=== PATIENT | male | born 1950 | race Caucasian/White ===

== ENCOUNTER 2023-12-07 10:39 | Emergency (ER) | payer MEDICARE, OTHER, SELFPAY ==
[2023-12-07 11:05] VITALS: BP 138/87
[2023-12-07] MEDS: TYLENOL 650 MG PO (12:35)
--- NOTE | 2023-12-07 12:35 | ED.GENMED ---
History of Present Illness
<Pari Herrera PA-C - Last Filed: 12/07/23 20:35>
General
Chief Complaint: Throat Problem
Source: patient
Exam Limitations: none
Time Seen by Provider: 12/07/23 12:04
Nursing documentation reviewed up to this point in time: agreed with
Travel History
Have you had any contact with someone who has COVID-19?: No
Do you have any symptoms of coronavirus? Fever > 100 degrees, chills, cough, shortness of breath, sore throat, loss of taste or smell, muscle aches, or headache?: Yes
Symptoms:: sore throat
History of Present Illness
History of Present Illness:
Patient is 73-year-old male with history hypertension, hyperlipidemia presenting to the emergency department for evaluation of sore throat worsening over the past few days. Patient states he started with a sore throat about 3 days ago which has
been progressively worsening. He endorses a very severe pain made worse with swallowing. Patient denies any associated fever, chills, nasal congestion, or cough. Patient denies any neck pain, chest pain, or shortness of breath. Although patient
does endorse pain when swallowing�he has been able to eat and drink appropriately. Patient has tried taking Tylenol over the past few days without much improvement.
Patient denies any recent travel. Patient denies any known recent sick contacts. No known history of HSV.
Patient was a former smoker.
Past History
<Pari Herrera PA-C - Last Filed: 12/07/23 20:35>
Past History
ED Past Medical History: CAD, HTN and Hypercholesterolemia
ED Past Surgical History: Cardiac (CABG)
Social History
Tobacco: Non-smoker
Alcohol: None
Drug: None
Personal:
Living: with family
Review of Systems
<Pari Herrera PA-C - Last Filed: 12/07/23 20:35>
Review of Systems
Allergies reviewed?: Yes
All Other Systems: ROS reviewed and negative except as documented in HPI and ROS
Phy Exam
<Pari Herrera PA-C - Last Filed: 12/07/23 20:35>
Physical Exam
Physical Exam:
Vitals: Patient's vital signs are stable. Afebrile
General: Patient is well appearing, no acute distress. Nontoxic-appearing
Skin: Warm and dry, no rashes or lesions on palms or soles
Eyes: Sclera nonicteric. EOMs intact. No nystagmus.
Ears: Right ear canal is widely patent with normal tympanic membrane and normal landmarks. No mastoid tenderness. Left ear canal is widely patent with normal tympanic membrane with normal limits. No mastoid tenderness
Sinuses: No tenderness of maxillary sinuses, no tenderness to frontal sinus.
Throat: Erythema noted to posterior pharynx with multiple white vesicles scattered in posterior pharynx. No tonsillar edema or exudates. No CARTRIDGE LOADER. Uvula midline, no asymmetry. Protecting airway. Adequate dentition. No trismus or drooling.
Neck: Normal ROM, no cervical spine tenderness, no meningismus. Some anterior lymphadenopathy noted. No redness, edema of neck. Trachea midline.
Cardiac: Regular rate and rhythm, no murmurs.
Pulm: Normal respiratory effort, no wheezes, rales, rhonchi heard on exam.
Abdomen: Abdomen soft. No abdominal tenderness.
Extremities: No evidence of cyanosis or edema. Good distal pulses.
Neuro: AAOx3. CN II-XII intact. No focal neurologic deficits.
Psychiatric: Normal affect.
Course
<Pari Herrera PA-C - Last Filed: 12/07/23 20:35>
Orders/Labs/Results
Orders:
Orders
12/07/23 11:42
Rapid Strep Group A Urgent
YANETH Source: Throat/Pharynx
Specimen Description:
Date Specimen was Collected: 12/07/23
Time Specimen was Collected: 11:40
Throat Culture, Comprehensive Urgent
YANETH Source: Throat/Pharynx
Specimen Description:
Date Specimen was Collected: 12/07/23
Time Specimen was Collected: 11:40
12/07/23 12:23
COVID-19 Antigen Urgent
Source: Nasal Swab
12/07/23 12:28
Acetaminophen [Tylenol] 650 mg PO NOW STA
12/07/23 12:33
Acetaminophen [Tylenol] 650 mg .ROUTE .STK-MED ONE
12/07/23 12:47
Dexamethasone [Decadron] 10 mg PO NOW STA
12/07/23 12:54
Dexamethasone Pf [Decadron] 10 mg .ROUTE .STK-MED ONE
12/07/23 12:56
Dexamethasone Pf [Decadron] 10 mg PO NOW STA
Vital Signs
Initial and Last Documented VS:
Initial Vital Signs
Temp Pulse Resp BP Pulse Ox
97.5 F 67 16 138/87 98
12/07/23 11:05 12/07/23 11:05 12/07/23 11:05 12/07/23 11:05 12/07/23 11:05
Last Documented Vital Signs
Temp Pulse Resp BP Pulse Ox
97.5 F 67 16 138/87 98
12/07/23 11:05 12/07/23 11:05 12/07/23 11:05 12/07/23 11:05 12/07/23 11:05
<Arun Jensen, - Last Filed: 12/07/23 13:24>
Orders/Labs/Results
Orders:
Orders
12/07/23 11:42
Rapid Strep Group A Urgent
YANETH Source: Throat/Pharynx
Specimen Description:
Date Specimen was Collected: 12/07/23
Time Specimen was Collected: 11:40
Throat Culture, Comprehensive Urgent
YANETH Source: Throat/Pharynx
Specimen Description:
Date Specimen was Collected: 12/07/23
Time Specimen was Collected: 11:40
12/07/23 12:23
COVID-19 Antigen Urgent
Source: Nasal Swab
12/07/23 12:28
Acetaminophen [Tylenol] 650 mg PO NOW STA
12/07/23 12:33
Acetaminophen [Tylenol] 650 mg .ROUTE .STK-MED ONE
12/07/23 12:47
Dexamethasone [Decadron] 10 mg PO NOW STA
12/07/23 12:54
Dexamethasone Pf [Decadron] 10 mg .ROUTE .STK-MED ONE
12/07/23 12:56
Dexamethasone Pf [Decadron] 10 mg PO NOW STA
Vital Signs
Initial and Last Documented VS:
Initial Vital Signs
Temp Pulse Resp BP Pulse Ox
97.5 F 67 16 138/87 98
12/07/23 11:05 12/07/23 11:05 12/07/23 11:05 12/07/23 11:05 12/07/23 11:05
Last Documented Vital Signs
Temp Pulse Resp BP Pulse Ox
97.5 F 67 16 138/87 98
12/07/23 11:05 12/07/23 11:05 12/07/23 11:05 12/07/23 11:05 12/07/23 11:05
<Pari Herrera PA-C - Last Filed: 12/07/23 20:35>
MDM/Problems Addressed
Differential Diagnosis Includes:
Not limited to: Viral illness including COVID, coxsackie, HSV; bacterial pharyngitis, mononucleosis, peritonsillar abscess, Mathieu angina
MDM/Problems Addressed:
73-year-old male presents with acute onset sore throat worsening over the past few days. No other associated symptoms. No known fevers at home. No known recent sick contacts. Vital stable, afebrile. Patient is uncomfortable appearing, although
nontoxic. On exam�there is significant erythema of throat and multiple white vesicles noted to his posterior pharynx. No tonsillar edema or exudates. There are no meningeal signs. Neurologic exam excellent. No other rashes noted on patient's
body, including palms and soles. Rapid strep test negative. Throat culture will be sent�although I do not suspect bacterial pharyngitis. COVID test negative. Exam is consistent with likely viral acute herpangina�likely coxsackievirus. Given
significant discomfort and inflammation of throat�will give 10 mg p.o. Decadron in emergency department.
Patient's vital signs are stable. He has no meningeal signs. He is otherwise stable for discharge with supportive care, primary care follow-up. Will send prescription for Magic mouthwash for comfort persist. Discussed return precautions with
patient at length and importance of staying well-hydrated. Patient comfortable with plan. All questions answered
Chronic conditions affecting care:
Hypertension
Acute Exacerbation and/or Progression of Chronic Illness:
Acute hypertensive
<Pari Herrera PA-C - Last Filed: 12/07/23 20:35>
*Pulse Oximetry
Patient hypoxic: no
*EKG
Interpreted by ED Provider?: NA
*Network Intelligence Analyst Interpretation
Rate: Network Intelligence Analyst- N/A
*Critical Care Note
Total Time (30-74mins, 75-104mins- exclusive of procedures): Not Applicable
ED Attending Note
<Pari Herrera PA-C - Last Filed: 12/07/23 20:35>
-
Portions of this chart may have been created with voice recognition software.� Occasional wrong word or��sound alike� substitutions may have occurred due to the inherent limitations of voice recognition software.
<Arun Jensen DO - Last Filed: 12/07/23 13:24>
ED Attending Note
Patient seen and examined by attending physician: Yes
I performed the substantive portion of visit, reviewed & personally made and approve the management plan that is documented in note by myself or DUSTY.: Yes
Discharge Plan
Departure
Patient Disposition: Home (Routine Discharge)
Date of Disposition: 12/07/23
Time of Disposition: 13:28
Patient with high blood pressure during this ER visit?: Yes
Condition: Good
Covid-19: Negative COVID-19
Discharge Problem:
Acute herpangina
Instructions: Mouth Sores (DC), BLOOD PRESSURE
Prescriptions:
No Action
aspirin 81 MG tablet,delayed release (DR/EC)
81 mg PO DAILY
atorvastatin 80 MG tablet
80 mg PO DAILY
sertraline 100 MG tablet
100 mg PO DAILY
alprazolam 0.25 MG tablet
0.25 mg PO TIDPRN PRN (Reason: ANXIETY)
furosemide 40 MG tablet
40 mg PO DAILY Qty: 90 3RF
potassium chloride [Klor-Con M20] 20 MEQ tablet,ER particles/crystals
20 meq PO DAILY Qty: 90 3RF
carvedilol 12.5 MG tablet
12.5 mg PO BID Qty: 0 0RF
Rx Instructions:
Remember to take TWICE A DAY!!
Referrals:
UNKNOWN - PT DOES,NOT KNOW [Family Provider] -
Activity Restrictions/Additional Instructions:
RETURN TO THE EMERGENCY DEPARTMENT WITH ANY HIGH FEVERS, CHILLS, CHEST PAIN, SHORTNESS OF BREATH, INABILITY TO SWALLOW, WORSENING IN CURRENT SYMPTOMS OR ANY OTHER CONCERNS
-A prescription for a mouthwash has been sent to her pharmacy. You can use this as needed for discomfort. You should continue to take Tylenol and/or Motrin for discomfort. It is more to stay well-hydrated. Recommend soft foods until symptoms
start to improve. Avoid salty and spicy foods.
-You should follow with your primary care provider within a week to ensure that symptoms are improving/for further evaluation
Interventions
Interventions:
*Risk Screen - Suicide Last Done: 12/07/23 13:33
*General Assessment Last Done: 12/07/23 13:33
*Neglect/Abuse Screening Last Done: 12/07/23 13:33
ED- Fall Risk Assessment Last Done: 12/07/23 13:33
*ED COVID-19 Vaccine History Last Done: 12/07/23 11:05
*Nursing Disposition Last Done: 12/07/23 13:33
ED-EENT Assessment Last Done: 12/07/23 11:44
ED- Pulmonary Assessment Last Done: 12/07/23 13:33
Discharge Date and Time
Discharge Date/Time: 12/07/23 13:34
Print Language: VIETNAMESE
[2023-12-07 12:41] LABS: COVID-19 Antigen Negative (Negative)
[2023-12-07] MEDS: DECADRON 10 MG PO (12:56)
== END 2023-12-07 13:34 | disposition home or self-care (01) ==
LOC: EMR 10:39
PROVIDERS: Physician Assistant; EMERGENCY PHYSICIAN Emergency Medicine
DX: B08.5 Enteroviral vesicular pharyngitis (principal); Z11.52 Encounter for screening for COVID-19; I10 Essential (primary) hypertension; I25.10 Atherosclerotic heart disease of native coronary artery without angina pectoris; E78.00 Pure hypercholesterolemia, unspecified; Z85.820 Personal history of malignant melanoma of skin; Z87.891 Personal history of nicotine dependence; Z95.1 Presence of aortocoronary bypass graft; Z79.82 Long term (current) use of aspirin
CPT/HCPCS: 99283; 87070; 87811; 87880

== ENCOUNTER 2023-12-14 12:55 | Emergency (ER) | payer MEDICARE, OTHER, SELFPAY ==
[2023-12-14 12:57] VITALS: BP 122/104
[2023-12-14 13:17] LABS: % Basophils 0.3 % (0-2); % Eosinophils 2.9 % (0-6); % Immature Granulocytes 0.7 % (0-0.5); % Lymphocytes 14.9 % (20.5-51.1); % Monocytes 9.2 % (1.7-9.3); Absolute Eosinophils 0.2 10^3/uL (0-0.7); Absolute Immature Granulocytes 0.1 10^3/uL (0-0.05); Absolute Lymphocytes 1.1 10^3/uL (1.2-3.4); Absolute Monocytes 0.7 10^3/uL (0.1-0.6); Absolute Neutrophils 5.2 10^3/uL (1.4-6.5); Hematocrit 43.3 % (39.0-52.0); Hemoglobin 14.4 g/dL (13.0-18.0); Mean Corp Hgb Conc. 33.3 g/dL (33.0-37.0); Mean Corpuscular Hgb 29.1 pg (27.0-31.0); Mean Corpuscular Volume 87.7 fL (80.0-94.0); Mean Platelet Volume 9.7 fL (7.4-10.4); Nucleated Red Blood Cells % 0 % (-); Platelet Count 150 10^3/uL (130-400); Red Blood Cell Count 4.94 10^6/uL (4.70-6.10); Red Cell Dist. Width 12.3 % (11.5-14.5); White Blood Cell Count 7.2 10^3/uL (4.8-10.8)
[2023-12-14 13:41] LABS: ALT (SGPT) 35 U/L (0-50); AST (SGOT) 28 U/L (17-59); Albumin 4.4 g/dl (3.5-5.0); Alkaline Phosphatase 93 U/L (38-126); Blood Urea Nitrogen 22 mg/dl (9-20); Calcium 9.1 mg/dl (8.4-10.2); Carbon Dioxide 32 mmol/L (22-30); Chloride 101 mmol/L (98-107); Glucose 92 mg/dl (70-99); Potassium 4.4 mmol/L (3.5-5.1); Sodium 141 mmol/L (135-145); Total Bilirubin 0.8 mg/dl (0.2-1.3); Total Protein 6.7 g/dl (6.3-8.2); eGFR > 60.00
[2023-12-14 13:57] VITALS: BMI 32.1
--- NOTE | 2023-12-14 14:07 | ED.GENMED ---
History of Present Illness
<Pari Herrera PA-C - Last Filed: 12/14/23 20:11>
General
Chief Complaint: Seizure
Source: patient
Exam Limitations: none
Time Seen by Provider: 12/14/23 13:46
Nursing documentation reviewed up to this point in time: agreed with
History of Present Illness
History of Present Illness:
Patient is a 73-year-old male with history CAD, hypertension, hyperlipidemia presenting for evaluation of uncontrollable twitching of head and upper body. Patient's states symptoms that he had 1 episode of this yesterday morning and then it
did not occur for the rest of the day. When he woke up this morning he had a repetitive twitching of his head and upper body that lasts a few seconds and then resolves. Today this has been occurring every 30 seconds.
Patient denies any associated pain, headache, fever, chills, numbness/tingling. Patient states that he has been walking without difficulty this morning and the twitching does not seem to affect his lower body. Patient's states patient has
been acting himself and does not seem confused or altered.
Of note�patient was recently in the emergency department about 1 week ago was treated for acute gingivostomatitis, presumed to be viral and discharged. Throat symptoms have somewhat improved
Past History
<Pari Herrera PA-C - Last Filed: 12/14/23 20:11>
Past History
ED Past Medical History: CAD, HTN and Hypercholesterolemia
ED Past Surgical History: Cardiac (CABG)
Social History
Tobacco: Non-smoker
Alcohol: None
Drug: None
Personal:
Living: with family
Phy Exam
<Pari Herrera PA-C - Last Filed: 12/14/23 20:11>
Physical Exam
Physical Exam:
Vitals: Hypertensive on arrival, otherwise vital signs stable. Afebrile
General: Patient is well appearing, intermittent upper extremity tremulous activity. Nontoxic-appearing
Skin: Warm and dry, no rashes or lesions
Head: Normocephalic, atraumatic
Eyes: Sclera nonicteric. EOMs intact. No nystagmus. Pupils equal round and reactive to light bilaterally
Throat: Posterior pharynx erythematous without any evidence of vesicles, tonsillar edema or exudates
Neck: Normal ROM, no cervical spine tenderness, no meningismus. Negative Kernig and Brezinski
Cardiac: Regular rate and rhythm, no murmurs.
Pulm: Normal respiratory effort, no wheezes, rales, rhonchi heard on exam.
Abdomen: Abdomen soft. No abdominal tenderness.
Extremities: No evidence of cyanosis or edema. Intermittent tremulous activity of upper extremities as described below
Neuro: AAOx3. CN II-XII intact. No focal neurologic deficits. Normal finger-nose. Strength 5 of 5 in upper and lower extremities. Brief upper extremity and head myoclonic activity lasting a few seconds at a time
Psychiatric: Normal affect.
Course
<Pari Herrera PA-C - Last Filed: 12/14/23 20:11>
Orders/Labs/Results
Orders:
Orders
12/14/23 13:09
CMP [Comprehensive Metabolic Panel] Urgent
Complete Blood Count/With Diff Urgent
12/14/23 13:59
CT Head W/o Iv Contrast Urgent
Comment:
Reason For Exam: new onset tremor
12/14/23 14:07
Diazepam [Valium] 2 mg PO NOW STA
12/14/23 14:08
Diazepam [Valium] 5 mg PO NOW STA
12/14/23 14:34
Acetaminophen [Tylenol] 650 mg .ROUTE .STK-MED ONE
12/14/23 14:36
Acetaminophen [Tylenol] 650 mg PO NOW STA
Abnormal Lab Results
12/14/23
13:09
Abs Immat Gran (auto) 0.1 H 10^3/uL
(0-0.05)
Absolute Lymphs (auto) 1.1 L 10^3/uL
(1.2-3.4)
Absolute Monos (auto) 0.7 H 10^3/uL
(0.1-0.6)
Immature Gran % 0.7 H %
(0-0.5)
Lymphocytes % 14.9 L %
(20.5-51.1)
Carbon Dioxide 32 H mmol/L
(22-30)
BUN 22 H mg/dl
(9-20)
12/14/23 13:09
12/14/23 13:09
Vital Signs
Initial and Last Documented VS:
Initial Vital Signs
Temp Pulse Resp BP Pulse Ox
98.4 F 62 18 122/104 95
12/14/23 12:57 12/14/23 12:57 12/14/23 12:57 12/14/23 12:57 12/14/23 12:57
Last Documented Vital Signs
Temp Pulse Resp BP Pulse Ox
98.4 F 52 16 145/87 95
12/14/23 12:57 12/14/23 15:45 12/14/23 15:45 12/14/23 15:00 12/14/23 15:45
<Francesco Mooney MD - Last Filed: 12/14/23 15:51>
Orders/Labs/Results
Orders:
Orders
12/14/23 13:09
CMP [Comprehensive Metabolic Panel] Urgent
Complete Blood Count/With Diff Urgent
12/14/23 13:59
CT Head W/o Iv Contrast Urgent
Comment:
Reason For Exam: new onset tremor
12/14/23 14:07
Diazepam [Valium] 2 mg PO NOW STA
12/14/23 14:08
Diazepam [Valium] 5 mg PO NOW STA
12/14/23 14:34
Acetaminophen [Tylenol] 650 mg .ROUTE .STK-MED ONE
12/14/23 14:36
Acetaminophen [Tylenol] 650 mg PO NOW STA
Abnormal Lab Results
12/14/23
13:09
Abs Immat Gran (auto) 0.1 H 10^3/uL
(0-0.05)
Absolute Lymphs (auto) 1.1 L 10^3/uL
(1.2-3.4)
Absolute Monos (auto) 0.7 H 10^3/uL
(0.1-0.6)
Immature Gran % 0.7 H %
(0-0.5)
Lymphocytes % 14.9 L %
(20.5-51.1)
Carbon Dioxide 32 H mmol/L
(22-30)
BUN 22 H mg/dl
(9-20)
12/14/23 13:09
12/14/23 13:09
Vital Signs
Initial and Last Documented VS:
Initial Vital Signs
Temp Pulse Resp BP Pulse Ox
98.4 F 62 18 122/104 95
12/14/23 12:57 12/14/23 12:57 12/14/23 12:57 12/14/23 12:57 12/14/23 12:57
Last Documented Vital Signs
Temp Pulse Resp BP Pulse Ox
98.4 F 52 16 145/87 95
12/14/23 12:57 12/14/23 15:45 12/14/23 15:45 12/14/23 15:00 12/14/23 15:45
<Pari Herrera PA-C - Last Filed: 12/14/23 20:11>
MDM/Problems Addressed
Differential Diagnosis Includes:
Not limited to: Muscular spasm/myoclonus, seizure, viral infection, HSV encephalitis
MDM/Problems Addressed:
Patient is 73-year-old male presenting with uncontrolled tremor starting yesterday. Patient appears to have uncontrolled myoclonus episodes of the upper extremities and face occurring a few times per minute. These only last few seconds. Patient
has no other neurologic findings. Patient has a steady gait. Patient has full strength in bilateral upper and lower extremities. Patient is afebrile with a negative Kernig sign and no meningeal signs. No rash. Patient's gingivostomatitis seems
improved from last week. Patient denies any headache, visual changes, weakness. Symptoms not consistent with seizure activity. Initial labs without any clinically significant abnormalities. Will check head CT although suspected to be normal.
Will try 5 p.o. Valium and reassess. Patient's bradycardia is noted and with comparison to prior vital signs appears baseline for patient
Did speak with neurology who feel symptoms are most consistent with myoclonic activity. CT without any acute abnormalities.
I have reassessed patient multiple times patient does still have these frequent upper extremity twitches even after administration. Otherwise he remains alert and oriented. No involvement of lower extremities. Patient is not confused with no
meningeal signs or evidence to suspect an encephalitis. Did offer patient admission for further observation but both himself and his would rather observe patient at home. Did discuss return precautions at length. Suspect this may be related
to likely viral syndrome and should resolve with time. Will have patient increase dose of Xanax over the next 2 days to see if it improves symptoms. Patient and patient's will monitor symptoms closely return with any worsening.
Chronic conditions affecting care:
N/A
Acute Exacerbation and/or Progression of Chronic Illness:
N/A
<Pari Herrera PA-C - Last Filed: 12/14/23 20:11>
*Radiology
Radiology exam reviewed: preliminary read by ED provider and radiology read reviewed
*Pulse Oximetry
Patient hypoxic: no
*EKG
Interpreted by ED Provider?: NA
*Crew Person Interpretation
Rate: bradycardiac
Interpretation: abnormal
Heart Rate: 56
Rhythm: sinus
*Critical Care Note
Total Time (30-74mins, 75-104mins- exclusive of procedures): Not Applicable
Data Reviewed
Review of Other/Old Records Reveals: Records (Emergency department visit 12/07/23)
Source: previous hospital records
Further Testing Considered But Not Given:
conisdered LP to rule out encephalitis; no neurological findings other than mycolonus. Patient afebrile, with no headache or meningeal signs
ED Attending Note
<Pari Herrera PA-C - Last Filed: 12/14/23 20:11>
-
Portions of this chart may have been created with voice recognition software.� Occasional wrong word or��sound alike� substitutions may have occurred due to the inherent limitations of voice recognition software.
<Francesco Mooney MD - Last Filed: 12/14/23 15:51>
ED Attending Note
Patient seen and examined by attending physician: Yes
I performed the substantive portion of visit, reviewed & personally made and approve the management plan that is documented in note by myself or DUSTY.: Yes
ED Attending Note:
73-year-old male uncontrolled tremor started yesterday. Much worse today. Frequent nature. Each 1 will last a second or so has been occurring possibly 2-3 or 4 times per minute. Mostly upper extremities and head no headache photophobia fever or
other complaints. Still has some sore throat that he had last week when he was here. However much improved.
On exam patient is nontoxic in no distress. He intermittently has these episodes of very brief tremor mostly upper extremity i.e. myoclonus like activity. During these episodes that last a second he is fully awake alert. He has a supple neck. He
has no photophobia. Gait is normal. He does have mild pharyngeal erythema but he showed a picture of the previous exudate and spots on his throat that are now much improved.
Patient does have a history of an episode like this after surgery 10 years ago. He also feels he may have mild Tourette's although never diagnosed. He is clinically with a supple neck and no clinical findings to support meningeal encephalitis.
Discussed with neurology and videos were sent to neurology for further input.
1550.... I have reevaluated this patient multiple times and he has remained very stable and nontoxic. He still has these occasional myoclonic light twitches. Symmetrical bilateral upper extremity chest and head. No lower extremity involvement.
Interestingly his said he had none while sleeping overnight last night. He has no other findings that would support meningeal encephalitis. He has no neck pain no Kernig's or Brudzinski's finding. No photophobia. There is no confusion. He
is fully awake and alert. Is no fever. No white count. This was all discussed with the patient and . Again he was offered admission for observation to see if this developed into anything further however they would prefer outpatient
monitoring if there is no clear benefit to admission at this time. Neurology again had sent videos of these episodes.
Discharge Plan
Departure
Patient Disposition: Home (Routine Discharge)
Date of Disposition: 12/14/23
Time of Disposition: 15:41
Patient with high blood pressure during this ER visit?: Yes
Condition: Good
Covid-19: Not Applicable
Discharge Problem:
Myoclonus
Instructions: Myoclonus
Prescriptions:
No Action
aspirin 81 MG tablet,delayed release (DR/EC)
81 mg PO DAILY
atorvastatin 80 MG tablet
80 mg PO DAILY
sertraline 100 MG tablet
100 mg PO DAILY
alprazolam 0.25 MG tablet
0.25 mg PO TIDPRN PRN (Reason: ANXIETY)
furosemide 40 MG tablet
40 mg PO DAILY Qty: 90 3RF
potassium chloride [Klor-Con M20] 20 MEQ tablet,ER particles/crystals
20 meq PO DAILY Qty: 90 3RF
carvedilol 12.5 MG tablet
12.5 mg PO BID Qty: 0 0RF
Rx Instructions:
Remember to take TWICE A DAY!!
Referrals:
Topkis,Francesco L., [Family Provider] - Follow up in 5-7 days
Activity Restrictions/Additional Instructions:
RETURN TO THE EMERGENCY DEPARTMENT WITH FEVERS, HEADACHE, NECK PAIN, ALTERED MENTAL STATUS, VISUAL CHANGES, NEW RASH, WORSENING IN CURRENT SYMPTOMS, OR ANY OTHER CONCERNS
-As discussed - you can increase your xanax over the next few to 3 times a day. It is important to stay well-hydrated.
-You should observe your symptoms closely at home and return to the emergency department for any acute worsening or new symptom onset.
Interventions
Interventions:
*Risk Screen - Suicide Last Done: 12/14/23 13:57
*General Assessment Last Done: 12/14/23 13:57
*Neglect/Abuse Screening Last Done: 12/14/23 13:57
ED- Fall Risk Assessment Last Done: 12/14/23 13:58
*ED COVID-19 Vaccine History Last Done: 12/14/23 13:57
*Nursing Disposition Last Done: 12/14/23 16:02
ED- Cardiac Assessment Last Done: 12/14/23 13:59
ED- Neurological Assessment Last Done: 12/14/23 13:59
ED- Pulmonary Assessment Last Done: 12/14/23 13:59
Discharge Date and Time
Discharge Date/Time: 12/14/23 16:22
Print Language: QATARI
[2023-12-14] MEDS: VALIUM 5 MG PO (14:12)
[2023-12-14] MEDS: TYLENOL 650 MG PO (14:37)
[2023-12-14 15:00] VITALS: BP 145/87
== END 2023-12-14 16:22 | disposition home or self-care (01) ==
LOC: EMR 12:55
PROVIDERS: Emergency Medicine; EMERGENCY PHYSICIAN Emergency Medicine; FAMILY PHYSICIAN Family Medicine
DX: G25.3 Myoclonus (principal); R25.1 Tremor, unspecified; I25.10 Atherosclerotic heart disease of native coronary artery without angina pectoris; I10 Essential (primary) hypertension; E78.00 Pure hypercholesterolemia, unspecified; Z95.1 Presence of aortocoronary bypass graft; Z85.820 Personal history of malignant melanoma of skin; Z87.891 Personal history of nicotine dependence
CPT/HCPCS: 99284; 70450; 80053; 85025

== ENCOUNTER 2025-01-01 13:01 | Emergency (ER) | payer MEDICARE, OTHER, SELFPAY ==
[2025-01-01 13:04] VITALS: BP 158/97
[2025-01-01 13:38] LABS: Hematocrit 43.6 % (39.0-52.0); Hemoglobin 15.1 g/dL (13.0-18.0); Mean Corp Hgb Conc. 34.6 g/dL (33.0-37.0); Mean Corpuscular Volume 87.6 fL (80.0-94.0); Nucleated Red Blood Cells % 0 % (-); Red Cell Dist. Width 12.5 % (11.5-14.5)
[2025-01-01 14:01] LABS: ALT (SGPT) 21 U/L (0-50); AST (SGOT) 21 U/L (17-59); Albumin 4.9 g/dl (3.5-5.0); Alkaline Phosphatase 79 U/L (38-126); Blood Urea Nitrogen 18 mg/dl (9-20); Calcium 9.3 mg/dl (8.4-10.2); Carbon Dioxide 25 mmol/L (22-30); Chloride 107 mmol/L (98-107); Glucose 114 mg/dl (70-99); Potassium 4.5 mmol/L (3.5-5.1); Sodium 140 mmol/L (135-145); Total Protein 7.2 g/dl (6.3-8.2); eGFR > 60.00
--- NOTE | 2025-01-01 14:57 | ED.GENMED ---
History of Present Illness
<Willi Skelton MD, Resident - Last Filed: 01/01/25 16:44>
General
Chief Complaint: Dizziness
Source: patient
Exam Limitations: none
Time Seen by Provider: 01/01/25 14:47
History of Present Illness
History of Present Illness:
This is a 74-year-old male with known history of CAD s/p CABG, hypertension, hyperlipidemia, anxiety/depression reportedly all stable with medication. Presenting for evaluation of fatigue and overall not feeling well. He reports that he has been
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 Initially he was involved in pickleball session with friends however he stopped doing that as well due to fatigue. He has seen multiple providers and was diagnosed with
uncontrolled depression. Initially he was on Zoloft and as needed Xanax however later bupropion and duloxetine 30 mg was also added (2 to 3 months ago) to his medication regimen. He denies any fevers, chills, chest pain, shortness of breath,
headache, change in vision, change in bowel habits or any recent surgeries.
Past History
<Willi Skelton MD, Resident - Last Filed: 01/01/25 16:44>
Past History
ED Past Medical History: CAD, HTN, Hypercholesterolemia and Psychiatric
ED Past Surgical History: Cardiac (CABG)
Social History
Tobacco: Non-smoker
Alcohol: None
Drug: None
Personal:
Living: with family
Review of Systems
<Willi Skelton MD, Resident - Last Filed: 01/01/25 16:44>
Review of Systems
Constitutional: Reports fatigue and sleep disturbance; Denies fever, weight loss or night sweats
EENT: Denies sore throat
Respiratory: Denies cough or trouble breathing
Cardiac: Denies chest pain or palpitations
ABD/GI: Denies abdominal pain, nausea or vomiting
: Denies dysuria or flank pain
Musculoskeletal: Denies joint pain
Skin: Denies itching
Neurological: Reports dizzy; Denies headache, weakness or numbness
Hematologic/Lymphatic: Denies bleeding
Psychiatric: Reports depression; Denies suicidal
Phy Exam
<Willi Skelton MD, Resident - Last Filed: 01/01/25 16:44>
General Physical Exam
General Presentation: well appearing and no apparent distress
General age: appears stated age
General Skin: warm
General Habitus: normal
General Mental: alert
General Hydration: appears well hydrated
Eye Exam
Eye Exam: PERRL, EOMI and conjunctiva normal
Cardiovascular Exam
Cardiovascular Exam: regular rate/rhythm and no murmur
Pulmonary Exam
Pulmonary Exam: lungs clear, no respiratory distress and no crackles
Gastrointestinal Exam
Gastrointestinal Exam: normal bowel sounds, non tender, soft and non distended
Neurological Exam
Neurological Exam: alert, oriented x3, CN II-XII intact, no motor deficits, no sensory deficits and speech normal
Musculoskeletal Exam
Musculoskeletal Exam: full ROM
Psychiatric Exam
Psychiatric Exam: anxious
Course
<Willi Skelton MD, Resident - Last Filed: 01/01/25 16:44>
Orders/Labs/Results
Orders:
Orders
01/01/25 13:12
Complete Blood Count/With Diff Urgent
Comprehensive Metabolic Panel Urgent
01/01/25 15:26
Electrocardiogram (*1) Urgent
Reason for Study: Fatigue / Weakness
EKG- Treatment ONCE
01/01/25 15:49
Anaplasma phagocytophila IgG/M [S] Urgent
Ehrlichia chaffeensis Ab Panel [S] Urgent
Lyme Progressive Urgent
TSH Reflex To Free T4 Urgent
Urinalysis Reflex To Culture Urgent
Date Specimen was Collected: 01/01/25
Time Specimen was Collected: 15:38
Babesia Smear [Blood Parasites] Urgent
YANETH Source: Blood/Venous
Specimen Description:
Abnormal Lab Results
01/01/25
13:12
Absolute Lymphs (auto) 0.7 L 10^3/uL
(1.2-3.4)
Lymphocytes % 11.8 L %
(20.5-51.1)
Monocytes % 9.6 H %
(1.7-9.3)
Glucose 114 H mg/dl
(70-99)
01/01/25 13:12
01/01/25 13:12
Vital Signs
Initial and Last Documented VS:
Initial Vital Signs
Temp Pulse Resp BP Pulse Ox
98.0 F 62 16 158/97 98
01/01/25 13:04 01/01/25 13:04 01/01/25 13:04 01/01/25 13:04 01/01/25 13:04
Last Documented Vital Signs
Temp Pulse Resp BP Pulse Ox
98.0 F 58 16 137/95 98
01/01/25 13:04 01/01/25 15:35 01/01/25 15:35 01/01/25 15:35 01/01/25 15:35
<Svetlana Eckert MD - Last Filed: 01/01/25 16:19>
Orders/Labs/Results
Orders:
Orders
01/01/25 13:12
Complete Blood Count/With Diff Urgent
Comprehensive Metabolic Panel Urgent
01/01/25 15:26
Electrocardiogram (*1) Urgent
Reason for Study: Fatigue / Weakness
EKG- Treatment ONCE
01/01/25 15:49
Anaplasma phagocytophila IgG/M [S] Urgent
Ehrlichia chaffeensis Ab Panel [S] Urgent
Lyme Progressive Urgent
TSH Reflex To Free T4 Urgent
Urinalysis Reflex To Culture Urgent
Date Specimen was Collected: 01/01/25
Time Specimen was Collected: 15:38
Babesia Smear [Blood Parasites] Urgent
YANETH Source: Blood/Venous
Specimen Description:
Abnormal Lab Results
01/01/25
13:12
Absolute Lymphs (auto) 0.7 L 10^3/uL
(1.2-3.4)
Lymphocytes % 11.8 L %
(20.5-51.1)
Monocytes % 9.6 H %
(1.7-9.3)
Glucose 114 H mg/dl
(70-99)
01/01/25 13:12
01/01/25 13:12
Vital Signs
Initial and Last Documented VS:
Initial Vital Signs
Temp Pulse Resp BP Pulse Ox
98.0 F 62 16 158/97 98
01/01/25 13:04 01/01/25 13:04 01/01/25 13:04 01/01/25 13:04 01/01/25 13:04
Last Documented Vital Signs
Temp Pulse Resp BP Pulse Ox
98.0 F 58 16 137/95 98
01/01/25 13:04 01/01/25 15:35 01/01/25 15:35 01/01/25 15:35 01/01/25 15:35
<Willi Skelton MD, Resident - Last Filed: 01/01/25 16:44>
MDM/Problems Addressed
Differential Diagnosis Includes:
Medication side effect vs anxiety/depression vs thyroid dx vs tickborne disease vs viral illness
MDM/Problems Addressed:
Check CBC, CMP, TSH, EKG, UA, Lyme, Babesia, anaplasmosis and ehrlichia.
Update: CBC unremarkable, CMP with mild elevation of blood glucose. Other labs pending
Spoke with Genet on the phone call who informed me that Brooke is scheduled for MRI brain for next week ordered by PCP.
While giving updates to the patient and his on the phone, he states that now he thinks about it and that he can recall sometimes he sometimes unable to hold urine, going on for many months.
TSH, UA, tickborne disease panel pending. There is no indication that requires any emergent treatment. Patient denies any suicidal or homicidal ideation. Patient is stable for discharge with recommendation for close outpatient follow-up with
family doctor. Advised him to discuss his multidrug regimen for depression that include Zoloft, bupropion, duloxetine and Xanax 3 times a day. His current symptoms including lack of energy/fatigue could be result of uncontrolled depression vs
medication side effect. No indication for imaging. He voices understanding and plans to follow-up with PCP.
Chronic conditions affecting care: CAD and Psychiatric illness
<Willi Skelton MD, Resident - Last Filed: 01/01/25 16:44>
*Pulse Oximetry
SaO2: 98
Oxygen Mode of Delivery: Room air
Patient hypoxic: no
*Critical Care Note
Total Time (30-74mins, 75-104mins- exclusive of procedures): Not Applicable
ED Attending Note
<Willi Skelton MD, Resident - Last Filed: 01/01/25 16:44>
-
Portions of this chart may have been created with voice recognition software.� Occasional wrong word or��sound alike� substitutions may have occurred due to the inherent limitations of voice recognition software.
<Svetlana Eckert MD - Last Filed: 01/01/25 16:19>
ED Attending Note
Patient seen and examined by attending physician: Yes
I performed a history and physical exam of patient and discussed management with resident, I reviewed resident's note and agree with documented findings and plan of care.: Yes
ED Attending Note:
This patient is a 74-year-old male with an extensive list of complaints that he describes that been going on for at least the last few months. He describes life changes including retiring/semiretiring, getting older, etc. He is been treated for
depression in the past, but was diagnosed with increasing depression and has had a variety of different medications added including Xanax 3 times daily. He is describing feeling loss of interest in things fatigue, dizziness that is intermittent,
intermittent tremors and shakes, etc. He was seen in the emergency department recently and had a head CT that was negative, neuroconsult, and was referred for outpatient follow-up. He denies fever, chills, chest pain, shortness of breath,
abdominal pain, focal weakness, change in vision, change in speech. On exam, awake alert oriented heart regular rate and rhythm, lungs CTA, abdomen soft and nontender, neuro intact, psych no suicidal ideation no homicidal ideation. No emergent
condition identified here patient will be referred for close outpatient follow-up at his request. There are some pending tests which we will follow-up with him if significant.
Discharge Plan
Departure
Patient Disposition: Home (Routine Discharge)
Date of Disposition: 01/01/25
Time of Disposition: 16:15
Patient with high blood pressure during this ER visit?: Yes
Condition: Good
Discharge Problem:
Fatigue
Instructions: Dizziness, Nonvertigo, (DC), BLOOD PRESSURE
Prescriptions:
No Action
aspirin 81 MG tablet,delayed release (DR/EC)
81 mg PO DAILY
atorvastatin 80 MG tablet
80 mg PO DAILY
sertraline 100 MG tablet
100 mg PO DAILY
alprazolam 0.25 MG tablet
0.25 mg PO TIDPRN PRN (Reason: ANXIETY)
furosemide 40 MG tablet
40 mg PO DAILY Qty: 90 3RF
potassium chloride [Klor-Con M20] 20 MEQ tablet,ER particles/crystals
20 meq PO DAILY Qty: 90 3RF
carvedilol 12.5 MG tablet
12.5 mg PO BID Qty: 0 0RF
Rx Instructions:
Remember to take TWICE A DAY!!
Referrals:
Francesco Malik, DO [Non-Admitting Privileges, Family Practice] - Follow up in 1 week
UNKNOWN - PT DOES,NOT KNOW [Family Provider]
Activity Restrictions/Additional Instructions:
You were seen in the emergency department today with concerns of fatigue and lack of energy. While you were here we performed complete blood count, complete metabolic panel which were unremarkable, we also checked your TSH for any thyroid disease,
urinalysis for any infection in the urine. And an extensive tickborne disease panel.
Most of the labs came back negative. Tickborne disease panel takes 3-5 days. Hospital will call you if there is any abnormal results. Please return to the emergency department if you develop any chest pain, trouble breathing, fever or chills, any
weakness, any changes in the vision, trouble speaking or any other worisome sign or symptoms. Please follow-up with your family doctor within 1 week to discuss the ER visit as well as your medications for anxiety/depression.
Interventions
Interventions:
*Risk Screen - Suicide Last Done: 01/01/25 15:35
*General Assessment Last Done: 01/01/25 15:35
*Neglect/Abuse Screening Last Done: 01/01/25 15:35
*ED- Fall Risk Assessment Last Done: 01/01/25 15:35
*ED COVID-19 Vaccine History Last Done: 01/01/25 15:35
ED- Neurological Assessment Last Done: 01/01/25 15:35
ED Swallowing Screen Last Done: 01/01/25 15:38
Discharge Date and Time
Print Language: YEMENI
--- NOTE | 2025-01-01 15:10 | EDRN ---
Dr. Vences Resident MD in room to see pt.
[2025-01-01 15:35] VITALS: BP 137/95; BMI 31.7
[2025-01-01 16:33] LABS: Urine Character Clear (Clear)
[2025-01-04 13:31] LABS: Lyme Antibody Screen, EIA Negative (Negative)
== END 2025-01-01 16:25 | disposition home or self-care (01) ==
LOC: EMR 13:01
PROVIDERS: Emergency Medicine; EMERGENCY PHYSICIAN Emergency Medicine
DX: R42 Dizziness and giddiness (principal); R53.83 Other fatigue; G47.9 Sleep disorder, unspecified; I25.10 Atherosclerotic heart disease of native coronary artery without angina pectoris; I10 Essential (primary) hypertension; E78.00 Pure hypercholesterolemia, unspecified; F32.A Depression, unspecified; F41.9 Anxiety disorder, unspecified; Z95.1 Presence of aortocoronary bypass graft; Z79.82 Long term (current) use of aspirin
CPT/HCPCS: 99283; 80053; 81003; 81015; 84443; 85025; 86618; 86666; 87015; 87086; 87207; 93005

== ENCOUNTER → 2025-02-15 08:53 | Outpatient (REF) | payer MEDICARE, OTHER, SELFPAY | LOC: MRI 08:53 | PROVIDERS: ATTENDING PHYSICIAN Nurse Practitioner Adult Health | DX: R41.82 Altered mental status, unspecified (principal); R42 Dizziness and giddiness | CPT/HCPCS: 70553 ==

== ENCOUNTER 2025-04-25 15:46 | Emergency (ER) | payer MEDICARE, OTHER, SELFPAY ==
[2025-04-25 16:08] VITALS: BP 137/90
[2025-04-25 16:30] LABS: Hematocrit 40.2 % (39.0-52.0); Hemoglobin 13.9 g/dL (13.0-18.0); Mean Corp Hgb Conc. 34.6 g/dL (33.0-37.0); Mean Corpuscular Volume 86.1 fL (80.0-94.0); Nucleated Red Blood Cells % 0 % (-); Platelet Count 147 10^3/uL (130-400); Red Cell Dist. Width 12.2 % (11.5-14.5)
[2025-04-25 16:45] LABS: ALT (SGPT) 31 U/L (0-50); AST (SGOT) 23 U/L (17-59); Albumin 4.5 g/dl (3.5-5.0); Alkaline Phosphatase 97 U/L (38-126); Blood Urea Nitrogen 18 mg/dl (9-20); Calcium 9.0 mg/dl (8.4-10.2); Carbon Dioxide 26 mmol/L (22-30); Chloride 104 mmol/L (98-107); Glucose 98 mg/dl (70-99); Potassium 4.3 mmol/L (3.5-5.1); Sodium 139 mmol/L (135-145); Total Protein 6.8 g/dl (6.3-8.2); eGFR > 60.00
--- NOTE | 2025-04-25 17:26 | ED.GENMED ---
History of Present Illness
General
Chief Complaint: Anxiety
Source: patient and spouse
Exam Limitations: none
Time Seen by Provider: 04/25/25 17:26
Nursing documentation reviewed up to this point in time: agreed with
History of Present Illness
History of Present Illness:
The patient is a pleasant 74-year-old man with a past medical history of anxiety, depression, high blood pressure and hyperlipidemia who reportedly takes 0.25 mg of Xanax for many years and about 5 days ago did not take any Xanax for a full day, and
then decided to take one Xanax only per day for a few days after that. Patient reports that he did this because he was not sure that the Xanax was ' making him feel well'. Patient reports that last night he felt a sense of severe panic and
anxiety. He reports that he felt like he was shaky all over. He felt restless. Patient reports he spoke to his primary care doctor today and was instructed to take 0.5 mg of Xanax 3 times today to compensate. Patient reports he now feels
completely fine and did not really want to have to come here. He denies suicidal and homicidal thoughts. He denies chest pain or shortness of breath. He reports he feels anxious because his reports that she would like him to work and make
money but he would like to remain retired. His is at the bedside and reports that they both see a therapist once a week. Patient offers no other complaints. Patient offered to speak to crisis and does not feel it is necessary. Patient no
longer feels shaky. He denies nausea and headache.
Past History
Past History
ED Past Medical History: CAD, HTN, Hypercholesterolemia and Psychiatric
ED Past Surgical History: Cardiac (CABG)
Social History
Tobacco: Former smoker
Alcohol: None
Drug: None
Personal:
Living: with family
Employment: Retired
Family History
Family History: Other
Review of Systems
Review of Systems
Allergies reviewed?: Yes
Other source history: family ()
All Other Systems: ROS reviewed and negative except as documented in HPI and ROS
Constitutional: Reports no symptoms
EENT: Reports no symptoms
Respiratory: Reports no symptoms
Cardiac: Reports no symptoms
ABD/GI: Reports no symptoms
: Reports no symptoms
Musculoskeletal: Reports no symptoms
Skin: Reports no symptoms
Neurological: Reports no symptoms
Endocrine: Reports no symptoms
Psychiatric: Reports anxiety
Phy Exam
Physical Exam
Physical Exam:
Physical Exam
General: no apparent distress, not acutely ill well and comfortable appearing
Neck: supple. no meningeal signs. normal psoterior pharynx
Heart: s1/s2 regular rate and rhythm, no murmur. equal radial pulses.
Lungs: no acute respiratory distress. clear bilaterally
Abdomen: normal bowel sounds. not tender. no CVAT
Neuro: alert and oriented. no focal neurological deficits
Skin: no rash
Psychiatric: well kept. interactive and cooperative
Extremities: no edema. no calf tenderness. negative homans. good distal pulses
Course
Orders/Labs/Results
Orders:
Orders
04/25/25 16:16
CMP [Comprehensive Metabolic Panel] Urgent
Complete Blood Count/With Diff Urgent
Abnormal Lab Results
04/25/25
16:16
RBC 4.67 L 10^6/uL
(4.70-6.10)
Absolute Lymphs (auto) 0.6 L 10^3/uL
(1.2-3.4)
Lymphocytes % 11.4 L %
(20.5-51.1)
Monocytes % 10.8 H %
(1.7-9.3)
04/25/25 16:16
04/25/25 16:16
Vital Signs
Initial and Last Documented VS:
Initial Vital Signs
Temp Pulse Resp BP Pulse Ox
98.9 F 98 18 137/90 98
04/25/25 16:08 04/25/25 16:08 04/25/25 16:08 04/25/25 16:08 04/25/25 16:08
Last Documented Vital Signs
Temp Pulse Resp BP Pulse Ox
98.9 F 98 18 137/90 98
04/25/25 16:08 04/25/25 16:08 04/25/25 16:08 04/25/25 16:08 04/25/25 17:57
MDM/Problems Addressed
Differential Diagnosis Includes:
Acute on chronic anxiety, benzo withdrawal, acute panic attack
MDM/Problems Addressed:
Patient presents with history of recent severe anxiety
Chronic conditions affecting care: Psychiatric illness
Acute Exacerbation and/or Progression of Chronic Illness: Psychiatric illness
*Pulse Oximetry
SaO2: 98
Oxygen Mode of Delivery: Room air
Patient hypoxic: no
*EKG
Interpreted by ED Provider?: NA
*Property Caretaker Interpretation
Rate: Property Caretaker- N/A
*Critical Care Note
Total Time (30-74mins, 75-104mins- exclusive of procedures): Not Applicable
Data Reviewed
Review of Other/Old Records Reveals: Radiology Studies (MRI brain reviewed from 02/15 which shows no acute disease)
Source: patient and spouse
Patient Management
Social determinants of health affecting care: Living situation and Strong social support
Escalation/DeEscalation of care consider admission/obs:
Patient denies suicidal and homicidal thoughts. Patient appears calm and relaxed without any signs of active benzo withdrawal. Story does sound suspicious for acute benzo withdrawal, however. Patient did take several doses of Xanax prior to
coming to the ED which has probably helped control the withdrawal. Patient instructed to take Xanax 3 times a day as he normally does to prevent this from happening again. assures me that patient will see his therapist this week. I did
explain to the patient that he should never change his dosing of Xanax without speaking to his primary care doctor first because of risk of life-threatening withdrawal
ED Attending Note
-
Portions of this chart may have been created with voice recognition software.� Occasional wrong word or��sound alike� substitutions may have occurred due to the inherent limitations of voice recognition software.
Discharge Plan
Departure
Patient Disposition: Home (Routine Discharge)
Date of Disposition: 04/25/25
Time of Disposition: 17:44
Patient with high blood pressure during this ER visit?: Yes
Condition: Good
Covid-19: Not Applicable
Discharge Problem:
Benzodiazepine withdrawal
Instructions: Sedative withdrawal - ED (DC), BLOOD PRESSURE
Prescriptions:
No Action
aspirin 81 MG tablet,delayed release (DR/EC)
81 mg PO DAILY
atorvastatin 80 MG tablet
80 mg PO DAILY
sertraline 100 MG tablet
100 mg PO DAILY
alprazolam 0.25 MG tablet
0.25 mg PO TIDPRN PRN (Reason: ANXIETY)
furosemide 40 MG tablet
40 mg PO DAILY Qty: 90 3RF
potassium chloride [Klor-Con M20] 20 MEQ tablet,ER particles/crystals
20 meq PO DAILY Qty: 90 3RF
carvedilol 12.5 MG tablet
12.5 mg PO BID Qty: 0 0RF
Rx Instructions:
Remember to take TWICE A DAY!!
Referrals:
Francesco Malik DO [Family Provider, Family Practice]
Activity Restrictions/Additional Instructions:
Make sure you are taking your Xanax 3 times a day. If you stop taking it, or if you substantially reduce it, it can trigger severe anxiety. Please follow-up with your therapist this week as scheduled.
Interventions
Interventions:
*Risk Screen - Suicide Last Done: 04/25/25 16:08
*General Assessment Last Done: 04/25/25 16:08
*Neglect/Abuse Screening Last Done: 04/25/25 16:08
*ED- Fall Risk Assessment Last Done: 04/25/25 16:08
*ED COVID-19 Vaccine History Last Done: 04/25/25 16:08
*ED Influenza Vaccine History Last Done: 04/25/25 16:08
*Nursing Disposition Last Done: 04/25/25 18:07
ED-Psychological Assessment Last Done: 04/25/25 18:06
Discharge Date and Time
Print Language: [id number]
== END 2025-04-25 18:08 | disposition home or self-care (01) ==
LOC: EMR 15:46
PROVIDERS: Student in an Organized Health Care Education/Training Program; EMERGENCY PHYSICIAN Emergency Medicine; FAMILY PHYSICIAN Family Medicine
DX: F13.939 Sedative, hypnotic or anxiolytic use, unspecified with withdrawal, unspecified (principal); F41.9 Anxiety disorder, unspecified; F32.A Depression, unspecified; I25.810 Atherosclerosis of coronary artery bypass graft(s) without angina pectoris; I10 Essential (primary) hypertension; E78.00 Pure hypercholesterolemia, unspecified; Z79.82 Long term (current) use of aspirin; Z95.1 Presence of aortocoronary bypass graft; Z87.891 Personal history of nicotine dependence
CPT/HCPCS: 99283; 80053; 85025